=== PATIENT | male | born 1985 | race Caucasian/White ===

== ENCOUNTER 2016-12-06 11:34 | Emergency (ER) | payer SELFPAY ==
[~2016-12-06] VITALS: Ht 180.3 cm; Wt 96.0 kg
[~2016-12-06 11:34] MED LIST: AUGM875T PO; IBUP800 PO
[2016-12-06 11:45] VITALS: BP 116/76; PULSE 78; RESP 16; TEMP 98.4; O2SAT 99
[2016-12-06] MEDS ORDERED: CLIN1CAP5 PO (12:26)
[2016-12-06] MEDS ORDERED: IBUP800T23 PO (12:26)
--- NOTE | 2016-12-06 12:27 | PD ---
HPI Chief Complaint: Oral / Dental Pain or Problem Time Seen by Provider: 12:23 Travel History International Travel<30 days: No Contact w/Intl Traveler<30days: No Traveled to known affect area: No History of Present Illness HPI 31-year-old male presents to the emergency department for evaluation of dental pain and left facial swelling. Patient is a history of dental abscesses. Patient denies any fevers or chills. He reports no chronic medical problems and taking her prescribed medications. Patient has been seen multiple occasions for dental issues. He states he tried to see a dentist when he can afford it. He denies any other complaints at this time. [facility] Past Medical History Medical History: Denies Significant Hx Diminished Hearing: No Immunizations Current: Yes Tetanus Vaccination: < 5 Years Influenza Vaccination: No Past Surgical History Abdominal Surgery: Yes Appendectomy: Yes Social History Alcohol Use: No Tobacco Use: Yes (1 PPD) Substance Use: No Allergies-Medications (Allergen,Severity, Reaction): Coded Allergies: No Known Allergies (Verified , 12/06/16) Reported Meds & Prescriptions Reported Meds & Active Scripts Active No Active Prescriptions or Reported Medications Review of Systems Except as stated in HPI: all other systems reviewed are Neg Physical Exam Narrative GENERAL: Well-developed well-nourished male patient, ambulatory. Afebrile. SKIN: Warm and dry. HEAD: Normocephalic. Atraumatic. Mild left facial swelling. This does not extend beyond the mandibular edge. No Cezar angina. ENT: Mucosa pink and moist. No erythema or exudates. No uvular edema. No uvular , palatal, or tonsillar deviation. Airway patent. Nasal turbinates appear normal without nasal blood, purulent drainage or septal hematoma. Bilateral tympanic membranes are clear without erythema or perforation. Patient has tenderness to gingiva with induration above tooth #5, 6, 7. EYES: No scleral icterus. No injection or drainage. NECK: Supple, trachea midline. No JVD or lymphadenopathy. CARDIOVASCULAR: Regular rate and rhythm without murmurs, gallops, or rubs. RESPIRATORY: Breath sounds equal bilaterally. No accessory muscle use. Lungs sounds are clear to auscultation. MUSCULOSKELETAL: No cyanosis, or edema. Data Data Last Documented VS Vital Signs Date Time Temp Pulse Resp B/P Pulse Ox O2 Delivery O2 Flow Rate FiO2 12/06/16 11:45 98.4 78 16 116/76 99 [facility] Medical Decision Making Medical Screen Exam Complete: Yes Emergency Medical Condition: Yes Medical Record Reviewed: Yes Differential Diagnosis Dental abscess versus dental caries versus gingivitis Narrative Course 31-year-old male presents to the emergency department for evaluation dental pain and facial swelling. Physical exam is consistent with a dental abscess. Patient is given clindamycin 300 mg by mouth in the emergency department. He' ll be discharged with a prescription for clindamycin and ibuprofen for pain. He is instructed to follow-up with a dentist. Patient is agreeable to this plan. Diagnosis Primary Impression: Dental abscess Referrals: Dentist call for appointment Patient Instructions: Dental Abscess (ED), General Instructions Additional Instructions: Take antibiotic as directed until gone. This is cheapest at [facility]. Take ibuprofen as directed as needed with food for pain. Follow-up with a dentist. Return to the emergency department for any acute worsening of symptoms. Med/Other Pt SpecificInfo: Prescription(s) given Scripts Ibuprofen 800 Mg [id number] Mg PO TID PRN (PAIN SCALE 1 TO 10) #21 TAB Ref 0 Prov:Ella Stahl 12/06/16 Clindamycin 150 Mg [id number] Mg PO Q6H 10 Days Ref 0 Prov:Ella Stahl 12/06/16 Disposition: 01 DISCHARGE HOME Condition: Stable Ella Stahl Dec 06, 2016 12:27
[2016-12-06] MEDS ORDERED: CLINDAMYCIN 150 MG CAP PO ONE (12:30)
== END 2016-12-06 12:35 | disposition home or self-care (01) ==
LOC: PHED 11:34 → PHEFT 12:35
DX: K04.7 Periapical abscess without sinus (principal); F17.210 Nicotine dependence, cigarettes, uncomplicated
CPT/HCPCS: 99283

== ENCOUNTER 2017-05-12 05:32 | Emergency (ER) | payer SELFPAY ==
[~2017-05-12 05:32] MED LIST changes: -AUGM875T PO; +CLIN1CAP5 PO; -IBUP800 PO; +IBUP800T23 PO
[2017-05-12 05:33] VITALS: BP 140/75; PULSE 72; RESP 18; TEMP 98.3; O2SAT 100
[2017-05-12] MEDS ORDERED: SODIUM CHLOR 0.9% 1000 ML INJ 1,000 ML IV SCH (05:59)
[2017-05-12] MEDS ORDERED: SODIUM CHLORIDE 0.9% FLUSH 10 ML FLUSH IV FLUSH PRN (06:00)
[2017-05-12] MEDS ORDERED: KETOROLAC TROMETHAMINE 30 MG/ML (IVP) VIAL IVP ONE (06:00)
[2017-05-12] MEDS ORDERED: ONDANSETRON HCL 4 MG/2 ML VIAL IVP ONE (06:00)
[2017-05-12] MEDS ORDERED: MORPHINE SULFATE 4 MG/ML INJ IV PUSH ONE ×3 (06:00→08:30)
[2017-05-12 06:01] VITALS: RESP 21; O2SAT 100
[2017-05-12] MEDS ORDERED: IBUP-232 PO (06:22)
[2017-05-12] MEDS ORDERED: PROM25TA10 PO (06:22)
[2017-05-12] MEDS ORDERED: TAMS5CAP PO (06:22)
[2017-05-12] MEDS ORDERED: NORC5TAB PO (06:22)
--- NOTE | 2017-05-12 06:22 | PD ---
HPI Chief Complaint: Complaint Time Seen by Provider: 05:53 Travel History International Travel<30 days: No Contact w/Intl Traveler<30days: No Traveled to known affect area: No History of Present Illness HPI The patient is a 31-year-old male who presents to the emergency department for left flank pain. The patient has a history of recurrent kidney stones, but has never needed intervention such as stent placement her lithotripsy. The patient developed left-sided flank pain yesterday that progressively worsen last night approximately 1 AM. The patient complains of gross hematuria with left-sided flank pain that radiates into the left groin. He does note nausea and vomiting secondary to the pain. The patient does have a previous history of appendectomy and lysis of adhesion on the right aspect of the abdomen. He does not currently have a urologist. He denies any fever, chills, or sweats. He denies any associated dysuria with hematuria. Symptoms are moderate, very similar to previous history of kidney stones, and there are no current alleviating factors. PFSH Past Medical History Narrative Medical Nephrolithiasis Diminished Hearing: No Immunizations Current: Yes Past Surgical History Abdominal Surgery: Yes Appendectomy: Yes Social History Alcohol Use: No Tobacco Use: Yes (1 PPD) Substance Use: No Allergies-Medications (Allergen,Severity, Reaction): Coded Allergies: No Known Allergies (Verified , 05/12/17) Reported Meds & Prescriptions Reported Meds & Active Scripts Active Diflucan (Fluconazole) 200 Mg Tab 200 Mg PO DAILY 3 Days start when not needing narcotic presciption for pain Cefdinir 300 Mg Cap 600 Mg PO DAILY 10 Days Phenergan (Promethazine HCl) 25 Mg Tablet 25 Mg PO Q6H PRN Flomax (Tamsulosin HCl) 0.4 Mg Cap 0.4 Mg PO HS [place] (Hydrocodone-Acetaminophen) 5-325 mg Tab 1 Tab PO Q6H PRN Ibuprofen 600 Mg Tab 600 Mg PO Q6H PRN Review of Systems Except as stated in HPI: all other systems reviewed are Neg General / Constitutional: No: Fever Cardiovascular: No: Chest Pain or Discomfort Respiratory: No: Shortness of Breath Gastrointestinal: Positive: Nausea, Vomiting, Diarrhea, Abdominal Pain Genitourinary: Positive: Hematuria, Flank Pain Skin: No Rash Physical Exam Narrative GENERAL: Awake, alert, pleasant 31-year-old male who appears his stated age and is in no acute respiratory distress. He does appear mild discomfort. SKIN: Focused skin assessment warm/dry. HEAD: Atraumatic. Normocephalic. EYES: Pupils equal and round. No scleral icterus. No injection or drainage. ENT: No nasal bleeding or discharge. Mucous membranes pink and moist. NECK: Trachea midline. No JVD. CARDIOVASCULAR: Regular rate and rhythm. No murmur appreciated. RESPIRATORY: No accessory muscle use. Clear to auscultation. Breath sounds equal bilaterally. GASTROINTESTINAL: Abdomen soft, well-healed scar right lower aspect of the abdomen. Left flank tenderness. Back: Left CVA tenderness. MUSCULOSKELETAL: No obvious deformities. No clubbing. No cyanosis. No edema. NEUROLOGICAL: Awake and alert. No obvious cranial nerve deficits. Motor grossly within normal limits. Normal speech. PSYCHIATRIC: Appropriate mood and affect; insight and judgment normal. Data Data Last Documented VS Vital Signs Date Time Temp Pulse Resp B/P Pulse Ox O2 Delivery O2 Flow Rate FiO2 05/12/17 09:42 78 16 109/60 99 05/12/17 06:01 Room Air 05/12/17 05:33 98.3 Orders Complete Blood Count With Diff (05/12/17 05:59) Comprehensive Metabolic Panel (05/12/17 05:59) Lipase (05/12/17 05:59) Urinalysis - C+S If Indicated (05/12/17 05:59) Ct Abd/Pel W/O Iv Contrast (05/12/17 05:59) Iv Access Insert/Monitor (05/12/17 05:59) Ecg Monitoring (05/12/17 05:59) Oximetry (05/12/17 05:59) Morphine Inj (Morphine Inj) (05/12/17 06:00) Ondansetron Inj (Zofran Inj) (05/12/17 06:00) Sodium Chlor 0.9% 1000 Ml Inj (Ns 1000 M (05/12/17 05:59) Sodium Chloride 0.9% Flush (Ns Flush) (05/12/17 06:00) Ketorolac Inj (Toradol Inj) (05/12/17 06:00) Morphine Inj (Morphine Inj) (05/12/17 07:00) Urine Culture (05/12/17 06:20) Morphine Inj (Morphine Inj) (05/12/17 08:30) Ceftriaxone Inj (Rocephin Inj) (05/12/17 08:30) Labs Laboratory Tests Test 05/12/17 06:20 White Blood Count 11.0 TH/MM3 Red Blood Count 4.72 MIL/MM3 Hemoglobin 13.8 GM/DL Hematocrit 41.0 % Mean Corpuscular Volume 86.9 FL Mean Corpuscular Hemoglobin 29.3 PG Mean Corpuscular Hemoglobin 33.7 % Concent Red Cell Distribution Width 12.8 % Platelet Count 137 TH/MM3 Mean Platelet Volume 10.5 FL Neutrophils (%) (Auto) 81.1 % Lymphocytes (%) (Auto) 13.8 % Monocytes (%) (Auto) 4.2 % Eosinophils (%) (Auto) 0.4 % Basophils (%) (Auto) 0.5 % Neutrophils # (Auto) 8.9 TH/MM3 Lymphocytes # (Auto) 1.5 TH/MM3 Monocytes # (Auto) 0.5 TH/MM3 Eosinophils # (Auto) 0.0 TH/MM3 Basophils # (Auto) 0.1 TH/MM3 CBC Comment DIFF FINAL Differential Comment Urine Color BROWN Urine Turbidity CLOUDY Urine pH 5.5 Urine Specific [place] 1.037 Urine Protein 100 mg/dL Urine Glucose (UA) NEG mg/dL Urine Ketones TRACE mg/dL Urine Occult Blood LARGE Urine Nitrite NEG Urine Bilirubin NEG Urine Urobilinogen 2.0 MG/DL Urine Leukocyte Esterase TRACE Urine RBC /hpf Urine WBC 9 /hpf Urine Bacteria OCC /hpf Urine Mucus FEW /lpf Urine Yeast (Budding) MOD Microscopic Urinalysis Comment CULTURE INDICATED Sodium Level 140 MEQ/L Potassium Level 3.7 MEQ/L Chloride Level 107 MEQ/L Carbon Dioxide Level 26.2 MEQ/L Anion Gap 7 MEQ/L Blood Urea Nitrogen 17 MG/DL Creatinine 1.19 MG/DL Estimat Glomerular Filtration 71 ML/MIN Rate Random Glucose 155 MG/DL Calcium Level 9.0 MG/DL Total Bilirubin 0.4 MG/DL Aspartate Amino Transf 23 U/L (AST/SGOT) Alanine Aminotransferase 26 U/L (ALT/SGPT) Alkaline Phosphatase 78 U/L Total Protein 7.0 GM/DL Albumin 4.3 GM/DL Lipase 66 U/L MDM Medical Decision Making Medical Screen Exam Complete: Yes Emergency Medical Condition: Yes Medical Record Reviewed: Yes Interpretation(s) CT the abdomen and pelvis reveals a 6 mm stone in the distal left ureter causing only mild dilation of the ureter and collecting system. No additional calcified stones in the collecting system of either kidney. Differential Diagnosis Differential diagnosis includes nephrolithiasis, hydronephrosis, pyelonephritis , testicular torsion, diverticulitis. Narrative Course IV was established, labs are drawn and sent, and the patient was placed on cardiac telemetry monitoring and continuous pulse oximetry monitoring. The patient was administered morphine, Toradol, Zofran, and IV fluids. UA was sent to lab. Noncontrast CT the abdomen and pelvis was ordered to evaluate for nephrolithiasis. The patient was signed out to the oncoming physician at 7 AM with laboratory evaluation and the official report of the CT of the abdomen and pelvis pending. Diagnosis Primary Impression: Nephrolithiasis Patient Instructions: General Instructions Additional Instructions: Medications as directed. Strain your urine. Follow-up with urology. Return if symptoms worsen or progress. Med/Other Pt SpecificInfo: Prescription(s) given Scripts Fluconazole (Diflucan)200 Mg [id number] Mg PO DAILY 3 Days Ref 0 start when not needing narcotic presciption for pain Prov:Kecia Bucio MD 05/12/17 Cefdinir 300 Mg [id number] Mg PO DAILY 10 Days Prov:Kecia Bucio MD 05/12/17 Promethazine (Phenergan)25 Mg [id number] Mg PO Q6H PRN (NAUSEA OR VOMITING) #10 TAB Ref 0 Prov:Gregorio Collins MD 05/12/17 Tamsulosin (Flomax)0.4 Mg Cap0.4 Mg PO HS #7 CAP Ref 0 Prov:Gregorio Collins MD 05/12/17 Hydrocodone-Acetaminophen ([place])5-325 mg Tab1 Tab PO Q6H PRN (PAIN) #20 TAB Ref 0 Prov:Gregorio Collins MD 05/12/17 Ibuprofen 600 Mg [id number] Mg PO Q6H PRN (Pain/Inflammation) #20 TAB Ref 0 Prov:Gregorio Collins MD 05/12/17 Disposition: 01 DISCHARGE HOME Gregorio Collins MD May 12, 2017 06:22
--- NOTE | 2017-05-12 06:44 | RADRPT ---
EXAM DATE/TIME: 05/12/2017 06:08 [place] COMPARISON: No previous studies available for comparison. INDICATIONS : Left flank pain with hematuria. ORAL CONTRAST: No oral contrast ingested. RADIATION DOSE: 8.47 CTDIvol (mGy) MEDICAL HISTORY : Renal calculi. SURGICAL HISTORY : Appendectomy. ENCOUNTER: Initial ACUITY: 1 day PAIN SCALE: 8/10 LOCATION: Left flank TECHNIQUE: Volumetric scanning of the abdomen and pelvis was performed. Using automated exposure control and ad justment of the mA and/or kV according to patient size, radiation dose was kept as low as reasonably achievable to obtain optimal diagnostic quality images. DICOM format image data is available electro nically for review and comparison. FINDINGS: LOWER LUNGS: The visualized lower lungs are clear. LIVER: Homogeneous density without lesion for noncontrast technique. There is no dilation of the biliary tr ee. No calcified gallstones. SPLEEN: Normal size without lesion. PANCREAS: Within normal limits. KIDNEYS: No renal stones in the collecting system on either side. There is minimal distention of the collecti ng system of left kidney and mild dilation of the left ureter. There is a 6 mm calcified stone in th e distal left ureter approximately 2 cm proximal to the ureterovesical junction. ADRENAL GLANDS: Within normal limits. VASCULAR: There is no aortic aneurysm. BOWEL/MESENTERY: No dilated loops of small or large bowel. ABDOMINAL WALL: Within normal limits. RETROPERITONEUM: There is no lymphadenopathy. BLADDER: No wall thickening or mass. REPRODUCTIVE: Within normal limits. INGUINAL: There is no lymphadenopathy or hernia. MUSCULOSKELETAL: Within normal limits for patient age. CONCLUSION: 6 mm stone in the distal left ureter causing only mild dilation of the ureter and collecting system. No additional calcified stones in the collecting system of either kidney. Aroldo Madera MD on May 12, 2017 at 6:36 Board Certified Radiologist. This report was verified electronically.
[2017-05-12 06:58] VITALS: RESP 17
[2017-05-12 07:05] LABS: AUTOMATED NEUTROPHIL # 8.9 TH/MM3 (1.8-7.7); BASOPHIL # 0.1 TH/MM3 (0-0.2); BASOPHIL % 0.5 % (0.0-2.0); EOSINOPHIL % 0.4 % (0.0-4.0); HEMO FLAGS DIFF FINAL; LYMPH % 13.8 % (9.0-44.0); LYMPHOCYTE # 1.5 TH/MM3 (1.0-4.8); MEAN CELL VOLUME 86.9 FL (80.0-100.0); MEAN CORPUSCULAR HEMOGLOBIN 29.3 PG (27.0-34.0); MEAN CORPUSCULAR HGB CONC 33.7 % (32.0-36.0); MONO % 4.2 % (0.0-8.0); NEUT % 81.1 % (16.0-70.0); PLATELET COUNT 137 TH/MM3 (150-450); RED BLOOD COUNT 4.72 MIL/MM3 (4.50-5.90); RED CELL DISTRIBUTION WIDTH 12.8 % (11.6-17.2)
[2017-05-12 07:12] LABS: ALT (GPT) 26 U/L (12-78); ANION GAP 7 MEQ/L (5-15); AST (GOT) 23 U/L (15-37); BICARBONATE 26.2 MEQ/L (21.0-32.0); BLOOD UREA NITROGEN 17 MG/DL (7-18); CHLORIDE 107 MEQ/L (98-107); GLOMERULAR FILTRATION RATE 71 ML/MIN (>89); POTASSIUM 3.7 MEQ/L (3.5-5.1); SODIUM (NA) 140 MEQ/L (136-145)
[2017-05-12 07:14] LABS: ALKALINE PHOSPHATASE 78 U/L (45-117); TOTAL BILIRUBIN ADULT 0.4 MG/DL (0.2-1.0)
[2017-05-12 07:49] LABS: BACTERIA, URINE OCC /hpf; BLOOD, URINE LARGE (NEG); COMMENT (UR) CULTURE INDICATED; CULTURE IF INDICATED CULTURE INDICATED; GLUCOSE,URINE NEG (NEG); KETONE, URINE TRACE mg/dL (NEG); MUCUS URINE FEW /lpf (OCC); NITRITE,URINE NEG (NEG); PH, URINE 5.5 (5.0-8.5); URINE COLOR BROWN (YELLW/STRAW)
[2017-05-12] MEDS ORDERED: cefTRIAXone INJ 1,000 MG in SODIUM CHLORIDE 0.9% INJ 100 ML IV ONE (08:30)
[2017-05-12] MEDS ORDERED: CEFD300C PO (09:21)
[2017-05-12] MEDS ORDERED: DIFL200T PO (09:21)
--- NOTE | 2017-05-12 09:21 | PD ---
Physical Exam Narrative GENERAL: Well-nourished, well-developed patient. SKIN: Warm and dry. HEAD: Normocephalic and atraumatic. EYES: No injection or drainage. ENT: No nasal drainage noted. NECK: Supple, trachea midline. CARDIOVASCULAR: Regular rate and rhythm RESPIRATORY: no increased effort. No accessory muscle use. NEUROLOGICAL: Awake and alert. Motor and sensory grossly within normal limits. Normal speech. Data Data Last Documented VS Vital Signs Date Time Temp Pulse Resp B/P Pulse Ox O2 Delivery O2 Flow Rate FiO2 05/12/17 06:58 17 05/12/17 06:01 100 Room Air 05/12/17 05:33 98.3 72 140/75 Orders Complete Blood Count With Diff (05/12/17 05:59) Comprehensive Metabolic Panel (05/12/17 05:59) Lipase (05/12/17 05:59) Urinalysis - C+S If Indicated (05/12/17 05:59) Ct Abd/Pel W/O Iv Contrast (05/12/17 05:59) Iv Access Insert/Monitor (05/12/17 05:59) Ecg Monitoring (05/12/17 05:59) Oximetry (05/12/17 05:59) Morphine Inj (Morphine Inj) (05/12/17 06:00) Ondansetron Inj (Zofran Inj) (05/12/17 06:00) Sodium Chlor 0.9% 1000 Ml Inj (Ns 1000 M (05/12/17 05:59) Sodium Chloride 0.9% Flush (Ns Flush) (05/12/17 06:00) Ketorolac Inj (Toradol Inj) (05/12/17 06:00) Morphine Inj (Morphine Inj) (05/12/17 07:00) Urine Culture (05/12/17 06:20) Morphine Inj (Morphine Inj) (05/12/17 08:30) Ceftriaxone Inj (Rocephin Inj) (05/12/17 08:30) Labs Laboratory Tests Test 05/12/17 06:20 White Blood Count 11.0 TH/MM3 Red Blood Count 4.72 MIL/MM3 Hemoglobin 13.8 GM/DL Hematocrit 41.0 % Mean Corpuscular Volume 86.9 FL Mean Corpuscular Hemoglobin 29.3 PG Mean Corpuscular Hemoglobin 33.7 % Concent Red Cell Distribution Width 12.8 % Platelet Count 137 TH/MM3 Mean Platelet Volume 10.5 FL Neutrophils (%) (Auto) 81.1 % Lymphocytes (%) (Auto) 13.8 % Monocytes (%) (Auto) 4.2 % Eosinophils (%) (Auto) 0.4 % Basophils (%) (Auto) 0.5 % Neutrophils # (Auto) 8.9 TH/MM3 Lymphocytes # (Auto) 1.5 TH/MM3 Monocytes # (Auto) 0.5 TH/MM3 Eosinophils # (Auto) 0.0 TH/MM3 Basophils # (Auto) 0.1 TH/MM3 CBC Comment DIFF FINAL Differential Comment Urine Color BROWN Urine Turbidity CLOUDY Urine pH 5.5 Urine Specific [place] 1.037 Urine Protein 100 mg/dL Urine Glucose (UA) NEG mg/dL Urine Ketones TRACE mg/dL Urine Occult Blood LARGE Urine Nitrite NEG Urine Bilirubin NEG Urine Urobilinogen 2.0 MG/DL Urine Leukocyte Esterase TRACE Urine RBC /hpf Urine WBC 9 /hpf Urine Bacteria OCC /hpf Urine Mucus FEW /lpf Urine Yeast (Budding) MOD Microscopic Urinalysis Comment CULTURE INDICATED Sodium Level 140 MEQ/L Potassium Level 3.7 MEQ/L Chloride Level 107 MEQ/L Carbon Dioxide Level 26.2 MEQ/L Anion Gap 7 MEQ/L Blood Urea Nitrogen 17 MG/DL Creatinine 1.19 MG/DL Estimat Glomerular Filtration 71 ML/MIN Rate Random Glucose 155 MG/DL Calcium Level 9.0 MG/DL Total Bilirubin 0.4 MG/DL Aspartate Amino Transf 23 U/L (AST/SGOT) Alanine Aminotransferase 26 U/L (ALT/SGPT) Alkaline Phosphatase 78 U/L Total Protein 7.0 GM/DL Albumin 4.3 GM/DL Lipase 66 U/L [facility] Supervised Visit with HARINI: No Interpretation(s) CBC & BMP Diagram 05/12/17 06:20 Last 24 hours Impressions Abdomen/Pelvis CT 05/12/17 0559 Signed Impressions: Service Date/Time: Friday, May 12, 2017 06:08 - CONCLUSION: 6 mm stone in the distal left ureter causing only mild dilation of the ureter and collecting system. No additional calcified stones in the collecting system of either kidney. Aroldo Madera MD ua with infection and yeast Narrative Course Signed over to me to follow blood work and urine and likely discharge. Urine shows signs of yeast infection. Given Rocephin. Creatinine is normal, no white count, no fever the patient is still in pain. Will dose with morphine and discuss with urology On recheck discussed observation versus close follow-up and preferring to go home. Will add prescription for Diflucan and antibiotic as discussed. Advised patient to follow also with primary tomorrow to her his sugars given yeast in urine, Patient denies any new complaints and states that they are feeling better. Patient happy with care, all questions answered. Patient knows that follow up is incumbent on them and to return to the emergency room immediately if new or worsening symptoms develop. Patient given strict return precautions, vitals reviewed and are normal, agrees to further workup as an outpatient. Physician Communication Physician Communication dr murphy states given distal if pain under control can go home with close follow-up, place on couple days of Diflucan also Diagnosis Primary Impression: Nephrolithiasis Referrals: Lew Murphy MD call for appointment this week Primary Care Physician call for appointment Patient Instructions: General Instructions Additional Instruction: Medications as directed. Strain your urine. Follow-up with urology. Return if symptoms worsen or progress. Scripts Fluconazole (Diflucan)200 Mg [id number] Mg PO DAILY 3 Days Ref 0 start when not needing narcotic presciption for pain Prov:Kecia Bucio MD 05/12/17 Cefdinir 300 Mg [id number] Mg PO DAILY 10 Days Prov:Kecia Bucio MD 05/12/17 Promethazine (Phenergan)25 Mg [id number] Mg PO Q6H PRN (NAUSEA OR VOMITING) #10 TAB Ref 0 Prov:Gregorio Collins MD 05/12/17 Tamsulosin (Flomax)0.4 Mg Cap0.4 Mg PO HS #7 CAP Ref 0 Prov:Gregorio Collins MD 05/12/17 Hydrocodone-Acetaminophen ([place])5-325 mg Tab1 Tab PO Q6H PRN (PAIN) #20 TAB Ref 0 Prov:Gregorio Collins MD 05/12/17 Ibuprofen 600 Mg [id number] Mg PO Q6H PRN (Pain/Inflammation) #20 TAB Ref 0 Prov:Gregorio Collins MD 05/12/17 Disposition: 01 DISCHARGE HOME Condition: Stable Kecia Bucio MD May 12, 2017 09:21
[2017-05-12 09:42] VITALS: BP 109/60
== END 2017-05-12 11:37 | disposition home or self-care (01) ==
LOC: NEPC 05:32
DX: N20.0 Calculus of kidney (principal); B37.89 Other sites of candidiasis; R31.0 Gross hematuria; R11.2 Nausea with vomiting, unspecified; F17.200 Nicotine dependence, unspecified, uncomplicated; Z87.442 Personal history of urinary calculi
CPT/HCPCS: 74176; 80053; 81001; 83690; 85025; 87086; 96361; 96365; 96375; 96376; 99285; J0696; J1885; J2270; J2405; J7030

== ENCOUNTER 2018-01-05 16:36 | Emergency (ER) | payer SELFPAY ==
[~2018-01-05] VITALS: Ht 180.3 cm; Wt 94.3 kg
[~2018-01-05 16:36] MED LIST changes: +CEFD300C PO; -CLIN1CAP5 PO; +DIFL200T PO; +IBUP-232 PO; -IBUP800T23 PO; +NORC5TAB PO; +PROM25TA10 PO; +TAMS5CAP PO
[2018-01-05 16:54] VITALS: BP 141/79; PULSE 104; RESP 18; TEMP 98.4; O2SAT 100
--- NOTE | 2018-01-05 18:13 | PD ---
HPI Chief Complaint: Oral / Dental Pain or Problem Time Seen by Provider: 17:47 Travel History International Travel<30 days: No Contact w/Intl Traveler<30days: No Traveled to known affect area: No History of Present Illness HPI Patient comes to the emergency department complaining of possible dental abscess. Patient states he began having pain 3 days ago throbbing-like in nature. Patient reports last night began having swelling of his left upper maxilla. Denies any radiation of pain. Patient reports he has an appointment with the dentist on Thursday. Reports taking ibuprofen with minimal relief of symptoms. Reports anything touching his tooth makes the pain worse. Denies any fevers or difficulty swallowing. PFSH Past Medical History Medical History: Denies Significant Hx Diminished Hearing: No Immunizations Current: Yes Influenza Vaccination: No Past Surgical History Abdominal Surgery: Yes Appendectomy: Yes Social History Alcohol Use: No Tobacco Use: Yes (11/18 PPD) Substance Use: No Allergies-Medications (Allergen,Severity, Reaction): Coded Allergies: No Known Allergies (Verified Adverse Reaction, Unknown, 01/05/18) Reported Meds & Prescriptions Reported Meds & Active Scripts Active Naprosyn (Naproxen) 500 Mg Tab 500 Mg PO Q12HR PRN Clindamycin (Clindamycin HCl) 150 Mg Cap 2 Cap PO Q6H 10 Days Review of Systems Except as stated in HPI: all other systems reviewed are Neg Physical Exam Narrative GENERAL: Well-developed, overly nourished, in no acute distress, and non-ill appearing. SKIN: Focused skin assessment warm and dry. HEAD: Atraumatic. Normocephalic. EYES: Pupils equal and round. EOMI. No scleral icterus. No injection or drainage. ENT: No nasal bleeding or discharge. Mucous membranes pink and moist. Poor dentition with no visible or palpable abscess. Minimal soft tissue swelling noted of left cheek. Is tender to palpation. No crepitus. Floor the mouth, submandibular, submental are all soft palpation. Uvula is midline. Patient swallowing own saliva without difficulty. NECK: Trachea midline. No cervical lymphadenopathy. Supple. No nuclear rigidity. RESPIRATORY: No accessory muscle use. No respiratory distress. MUSCULOSKELETAL: No obvious deformities. No clubbing. No cyanosis. No edema. Full range of motion. NEUROLOGICAL: Awake and alert. No obvious cranial nerve deficits. Motor grossly within normal limits. Normal speech. PSYCHIATRIC: Appropriate mood and affect; insight and judgment normal. Data Data Last Documented VS Vital Signs Date Time Temp Pulse Resp B/P (MAP) Pulse Ox O2 Delivery O2 Flow Rate FiO2 01/05/18 16:54 98.4 104 18 141/79 (99) 100 Orders Orders Clindamycin Inj (Cleocin Inj) (01/05/18 18:15) Ed Discharge Order (01/05/18 18:15) MDM Medical Decision Making Medical Screen Exam Complete: Yes Emergency Medical Condition: Yes Differential Diagnosis Dental abscess, dental infection, dentalgia Narrative Course The patient presented with dental pain. There is no fever. There is no significant facial swelling or evidence of cellulitis. There is poor dentition but no evidence of drainable abscess at this time. There is no evidence of significant deep or invading abscess at this time. The patient will be placed on antibiotics and pain medication. The patient was instructed to follow up with a dentist on Thursday as scheduled. Warnings were discussed with the patient regarding worsening of infection. The patient is to return if pain worsens, develops progressive swelling or facial redness or fever. The patient agrees with plan. Patient in no obvious distress upon re-evaluation. Patient was asked if they wanted to speak to my attending, which the patient did not wish to do at this time. Any questions/concerns in reference to patient diagnosis/condition discussed and clarified prior to patient's discharge. Reinforced sheer importance of close follow up with patient's primary physician or primary care clinic. Instructed patient to return to ED immediately, if symptoms return/ worsen. Patient showed understanding of above instructions. Further instructions and recommendations were detailed in discharge paperwork. Patient ambulated without difficulty out of ED at discharge. Diagnosis Primary Impression: Infected dental caries Patient Instructions: Dental Abscess (ED), Dental Caries (ED), General Instructions Additional Instructions: Follow-up with your primary care physician and dentist as soon as possible. Rinse mouth with warm salt water gargles. Take all medication as prescribed. Return to the emergency department if symptoms get worse. Med/Other Pt SpecificInfo: Prescription(s) given Scripts Naproxen (Naprosyn) 500 Mg Tab 500 MG PO Q12HR Y for PAIN SCALE 1 TO 10, #14 TAB 0 Refills Prov: Corinna Garza MD 01/05/18 Clindamycin (Clindamycin) 150 Mg Cap 2 CAP PO Q6H for Infection for 10 Days, #80 CAP 0 Refills Prov: Corinna Garza MD 01/05/18 Disposition: 01 DISCHARGE HOME Condition: Stable Oren Dee Jan 05, 2018 18:13
[2018-01-05] MEDS ORDERED: NAPR500 PO (18:14)
[2018-01-05] MEDS ORDERED: CLIN150C14 PO (18:14)
[2018-01-05] MEDS ORDERED: CLINDAMYCIN PHOS 600 MG/4 ML VIAL IM ONE (18:15)
== END 2018-01-05 18:45 | disposition home or self-care (01) ==
LOC: PHEFT 16:36
DX: K04.7 Periapical abscess without sinus (principal); K02.9 Dental caries, unspecified; F17.200 Nicotine dependence, unspecified, uncomplicated
CPT/HCPCS: 96372